=== PATIENT | male | born 2000 | race American Indian/Alaskan Native ===

== ENCOUNTER 2021-07-20 15:55 | Emergency (ER) | payer SELFPAY | END 2021-07-20 18:10 | disposition left against medical advice (07) | LOC: ED 15:55 | DX: J02.9 Acute pharyngitis, unspecified (principal); R51.9 Headache, unspecified; Z53.21 Procedure and treatment not carried out due to patient leaving prior to being seen by health care provider ==

== ENCOUNTER 2021-07-22 05:03 | Emergency (ER) | payer OTHER ==
--- NOTE | 2021-07-22 06:36 | Emergency Department Report ---
ED General Adult HPI - General Chief complaint: Anxiety Stated complaint: ALOT Time Seen by Provider: 07/22/21 05:39 Source: patient Mode of arrival: Ambulatory Limitations: No Limitations - History of Present Illness Initial comments: 19-year-old male [facility] emerge department complaining of abdominal pain after being treated for pharyngitis few days ago. States he has been taking the medication as prescribed but have some issues with anxiety which he thinks may be related to the sensation of swelling in his throat and the pain does not been resolved since utilizing the medicine. Reports no hemoptysis no hematemesis hematochezia, no rashes, no nausea, no vomiting, no diarrhea. There is odynophagia present. No ear pain or presyncope - Related Data Allergies Allergy/AdvReac Type Severity Reaction Status Date / Time ibuprofen Allergy Severe Anaphylaxis Verified 07/22/21 05:55 ED Review of Systems ROS: Stated complaint: ALOT Other details as noted in HPI Comment: All other systems reviewed and negative ED Physical Exam - General Limitations: No Limitations General appearance: alert, in no apparent distress - Head Head exam: Present: atraumatic, normocephalic, normal inspection - Eye Eye exam: Present: normal appearance, PERRL, EOMI Pupils: Present: normal accommodation - ENT ENT exam: Present: mucous membranes moist, other - Expanded ENT Exam Expanded Mouth exam: Present: other (Pharynx red swollen with some exudate present airway patent tongue uvula midline) Teeth exam: Present: normal inspection Throat exam: Positive: tonsillar erythema, tonsillar exudate - Neck Neck exam: Present: lymphadenopathy - Respiratory Respiratory exam: Present: normal lung sounds bilaterally. Absent: respiratory distress, wheezes - Cardiovascular Cardiovascular Exam: Present: regular rate, normal rhythm. Absent: systolic murmur, diastolic murmur, rubs, gallop - GI/Abdominal GI/Abdominal exam: Present: soft, normal bowel sounds - Rectal Rectal exam: Present: deferred - Extremities Exam Extremities exam: Present: normal inspection - Back Exam Back exam: Present: normal inspection - Neurological Exam Neurological exam: Present: alert, oriented X3, CN II-XII intact, normal gait - Psychiatric Psychiatric exam: Present: normal affect, normal mood - Skin Skin exam: Present: warm, dry, intact, normal color. Absent: rash ED Course Vital Signs 07/22/21 05:13 Temperature 98.8 F Pulse Rate 73 Respiratory 18 Rate Blood Pressure 126/75 O2 Sat by Pulse 98 Oximetry Critical care attestation.: If time is entered above; I have spent that time in minutes in the direct care of this critically ill patient, excluding procedure time. ED Disposition Clinical Impression: Pharyngitis, Acute anxiety Disposition: HOME / SELF CARE / HOMELESS Is pt being admited?: No Does the pt Need Aspirin: No Condition: Stable Instructions: Upper Respiratory Infection, Adult, Pharyngitis, Strep Throat, Adult, Insomnia, Viral Respiratory Infection Additional Instructions: Is been given no medication required to treat her pharyngitis as well as a medication to help calm the sleep tonight Referrals: [facility] [Provider Group] - 3-5 Days
[2021-07-22] MEDS ORDERED: LORazepam 2 MG/ML VIAL IM ONE (06:39)
[2021-07-22] MEDS ORDERED: PENICILLIN G BENZATHINE 1.2 MILLION UNIT/2 ML INJ IM ONE (06:39)
[2021-07-22] MEDS ORDERED: dexAMETHasone 4 MG/ML VIAL IM ONE (06:39)
[2021-07-22 06:44] VITALS: BP 120/70
== END 2021-07-22 06:48 | disposition home or self-care (01) ==
LOC: ED 05:03
DX: J02.9 Acute pharyngitis, unspecified (principal); F41.8 Other specified anxiety disorders
CPT/HCPCS: 96372; 99282; J0561; J1100; J2060